=== PATIENT | female | born 1970 | race Caucasian/White ===

== ENCOUNTER 2017-02-09 15:16 | Emergency (ER) | payer OTHER ==
[~2017-02-09] VITALS: Ht 157.5 cm; Wt 111.8 kg
[~2017-02-09 15:16] MED LIST: ACCUPRIL40 MG PO; ASPIR-LOW81 MG PO; ASPIRIN81 M1 PO; BACTRIM,SEPT1 TABLET PO; CLARITIN10 M3 PO; DELTASONE20 MG PO; DIOVAN320 MG PO; FLEXERIL10 MG PO; FUROSEMIDE80 MG PO; HYDROCHLOROTHIA25 MG PO; HYDROCHLOROTHIA50 MG PO; HYDROCODON-ACE1 EAC2; INVOKAMET 50-11 EACH PO; KLOR-CON 1010 ME1 PO; LEVO-T150 MCG PO; LEVOTHYROXINE125 MCG PO; LOSARTAN POTAS100 MG PO; LOTENSIN40 MG PO; MAGNESIUM400 M1 PO; MAXALT10 MG PO; NABUMETONE500 M1 PO; NAPROSYN500 MG PO; NESINA25 MG PO; PRAVACHOL40 MG PO; PREDNISONE20 MG PO; PRILOSEC20 MG PO; PRILOSEC40 MG PO; PROTONIX40 MG PO; PROVENTIL,2.5 MG/0.5 IH; RANITIDINE HCL150 MG PO; SIMVASTATIN40 M1 PO; SYMBICORT60 INHALAT IH; SYNTHROID125 MCG PO; SYNTHROID75 MCG PO; TRADJENTA5 MG PO; TRIAMCINOLONE A15 GM TP; ULTRAM50 MG PO; VENTOLIN HFA18 GM IH; VENTOLIN17 GM IH; ZEGERID40 MG PO
[2017-02-09] MEDS ORDERED: LIDOCAINE20 MG/1 M5 PO (16:23)
[2017-02-09] MEDS ORDERED: ULTRAM50 MG PO (16:23)
[2017-02-09 16:49] VITALS: BP 129/84
== END 2017-02-09 16:50 | disposition home or self-care (01) ==
LOC: EME 15:16
DX: K12.0 Recurrent oral aphthae (principal); J45.909 Unspecified asthma, uncomplicated; E11.9 Type 2 diabetes mellitus without complications; E78.5 Hyperlipidemia, unspecified; I10 Essential (primary) hypertension; E03.9 Hypothyroidism, unspecified; Z79.82 Long term (current) use of aspirin
CPT/HCPCS: 99281; 99284

== ENCOUNTER 2017-05-20 12:47 | Emergency (ER) | payer OTHER ==
[~2017-05-20] VITALS: Ht 157.5 cm; Wt 110.9 kg
[~2017-05-20 12:47] MED LIST changes: +LIDOCAINE20 MG/1 M5 PO
[2017-05-20] MEDS ORDERED: PREDNISONE10 M1 PO (14:44)
[2017-05-20] MEDS ORDERED: ATARAX,VISTARIL25 MG PO (14:44)
[2017-05-20] MEDS ORDERED: CORTIZONE-10 PL57 GM TP (14:44)
[2017-05-20 14:52] VITALS: BP 122/77
[2017-05-20 15:02] LABS: POINT-OF-CARE METER ID UU13113800
== END 2017-05-20 15:10 | disposition home or self-care (01) ==
LOC: EME 12:47
PROVIDERS: Physician Assistant
DX: L30.9 Dermatitis, unspecified (principal); E03.9 Hypothyroidism, unspecified; I10 Essential (primary) hypertension; J44.9 Chronic obstructive pulmonary disease, unspecified; E11.9 Type 2 diabetes mellitus without complications; Z79.84 Long term (current) use of oral hypoglycemic drugs; Z79.82 Long term (current) use of aspirin
CPT/HCPCS: 82948; 99281; 99284; J1200

== ENCOUNTER 2017-06-17 02:15 | Emergency (ER) | payer OTHER ==
[~2017-06-17] VITALS: Ht 157.5 cm; Wt 111.6 kg
[~2017-06-17 02:15] MED LIST changes: +ATARAX,VISTARIL25 MG PO; +CORTIZONE-10 PL57 GM TP; +PREDNISONE10 M1 PO
[2017-06-17] MEDS ORDERED: TRAMADOL HCL50 MG PO (02:48)
[2017-06-17 02:55] VITALS: BP 164/93
== END 2017-06-17 02:58 | disposition home or self-care (01) ==
LOC: EME 02:15
DX: H18.822 Corneal disorder due to contact lens, left eye (principal); J44.9 Chronic obstructive pulmonary disease, unspecified; E11.9 Type 2 diabetes mellitus without complications; K21.9 Gastro-esophageal reflux disease without esophagitis; E03.9 Hypothyroidism, unspecified; G62.9 Polyneuropathy, unspecified
CPT/HCPCS: 99281; 99284

== ENCOUNTER 2017-11-23 17:30 | Emergency (ER) | payer BC ==
[~2017-11-23] VITALS: Ht 157.5 cm; Wt 111.4 kg
[~2017-11-23 17:30] MED LIST changes: +TRAMADOL HCL50 MG PO
[2017-11-23 19:43] VITALS: BP 152/90
== END 2017-11-23 19:44 | disposition home or self-care (01) ==
LOC: EME 17:30
DX: S93.601A Unspecified sprain of right foot, initial encounter (principal); W01.0XXA Fall on same level from slipping, tripping and stumbling without subsequent striking against object, initial encounter; Z88.8 Allergy status to other drugs, medicaments and biological substances
CPT/HCPCS: 73630; 99281; 99284

== ENCOUNTER 2017-12-06 16:31 | Emergency (ER) | payer BC ==
[~2017-12-06] VITALS: Ht 157.5 cm; Wt 108.3 kg
[2017-12-06] MEDS ORDERED: BACTRIM,SEPT1 TABLET PO (20:50)
[2017-12-06 21:38] VITALS: BP 112/81
== END 2017-12-06 21:40 | disposition home or self-care (01) ==
LOC: EME 16:31
PROC: 0H97XZZ Drainage of Abdomen Skin, External Approach (ICD-10-PCS; principal; 2017-12-06)
DX: L02.211 Cutaneous abscess of abdominal wall (principal); E11.9 Type 2 diabetes mellitus without complications; Z79.84 Long term (current) use of oral hypoglycemic drugs; E03.9 Hypothyroidism, unspecified; J45.909 Unspecified asthma, uncomplicated; E78.5 Hyperlipidemia, unspecified; I10 Essential (primary) hypertension; Z88.8 Allergy status to other drugs, medicaments and biological substances
CPT/HCPCS: 99281; 99284